=== PATIENT | male | born 1935 | race Caucasian/White ===

== ENCOUNTER 2021-12-18 09:31 | Outpatient (REF) | payer MEDICARE, SELFPAY ==
[2021-12-18 12:11] LABS: D Dimer High Sensitivity 208 NG/ML
== END 2021-12-18 09:32 | disposition home or self-care (01) ==
LOC: HO.LAB 09:31
PROVIDERS: PCP Physician Assistant; Visit Provider Nurse Practitioner Family
DX: M79.89 Other specified soft tissue disorders (principal); R29.818 Other symptoms and signs involving the nervous system; G20 Parkinson's disease
CPT/HCPCS: 36415; 85379; 99212

== ENCOUNTER → 2022-03-19 09:11 | Outpatient (BNVA) | payer MEDICARE, SELFPAY | PROVIDERS: Visit Provider Nurse Practitioner Family | DX: G20 Parkinson's disease (principal); R29.818 Other symptoms and signs involving the nervous system; Z79.899 Other long term (current) drug therapy | CPT/HCPCS: 99212 ==

== ENCOUNTER → 2022-06-18 10:23 | Outpatient (BNVA) | payer MEDICARE, SELFPAY | PROVIDERS: Visit Provider Nurse Practitioner Family | DX: G20 Parkinson's disease (principal); R29.818 Other symptoms and signs involving the nervous system; Z79.899 Other long term (current) drug therapy; Z91.81 History of falling | CPT/HCPCS: 99212 ==

== ENCOUNTER → 2022-10-22 09:10 | Outpatient (BNVA) | payer MEDICARE, SELFPAY | PROVIDERS: PCP Internal Medicine; Visit Provider Nurse Practitioner Family | DX: G20 Parkinson's disease (principal); R29.818 Other symptoms and signs involving the nervous system; Z91.81 History of falling; Z79.899 Other long term (current) drug therapy | CPT/HCPCS: 99212 ==

== ENCOUNTER → 2023-02-19 09:30 | Outpatient (BNVA) | payer MEDICARE, SELFPAY | PROVIDERS: PCP Internal Medicine; Visit Provider Nurse Practitioner Family | DX: G20 Parkinson's disease (principal); R29.818 Other symptoms and signs involving the nervous system | CPT/HCPCS: 99212 ==

== ENCOUNTER 2023-10-06 12:56 | Outpatient (AMB) | payer MEDICARE, SELFPAY ==
--- NOTE | 2023-10-06 13:01 | A.OFFVIS_ITS ---
Intake Vital Signs 10/06/23 13:10 Height 5 ft 10 in BP 122/74 Blood Pressure Location Rt brachial Position Sitting Pulse 61 Pulse Source Pulse Oximeter Pulse Oximetry (%) 95 Oxygen Delivery Method Room Air Intake Visit Reasons: 5mnts f/u appt -LVM Intake Note: Patient presents for 5 month follow. his daughter wanted us to report he's had increase sensitivity to sunlight,he feels his memory is not as good as it used to be Allergies Penicillins Allergy (Unknown, Verified 10/06/23 13:06) Unknown aripiprazole Allergy (Verified 10/06/23 13:06) Headache simvastatin Allergy (Verified 10/06/23 13:06) Abdominal Pain Medication List - Last Reconciled 10/06/23 by CRESCENCIO Dempsey acetaminophen ER (Tylenol 8 Hour) 650 mg PO Q12H albuterol sulfate 90 mcg/actuation inhalation albuterol-budesonide 90-80 mcg/actuation (Airsupra) 2 inhalations inhalation QID PRN amlodipine 5 mg PO DAILY aspirin (Adult Aspirin Regimen) 81 mg PO DAILY atorvastatin mg PO DAILY carbidopa-levodopa 25-100 mg 2 tabs PO QID 90 days docusate sodium (Colace) 100 mg PO DAILY entacapone 200 mg PO QID 28 days escitalopram oxalate 20 mg PO DAILY flaxseed oil 1,000 mg PO DAILY fluticasone propionate 50 mcg/actuation intranasal aybxjtkywer-cpomcovme-lhaxzlli 100-62.5-25 mcg (Trelegy Ellipta) 1 inh inhalation DAILY [Left ankle foot orthosis/AFO As directed] magnesium oxide 500 mg PO DAILY mirtazapine 15 mg PO BEDTIME multivitamin 1 tab PO DAILY omeprazole mg PO HPI HPI Comments History of Present Illness Details 87-yr-old male presents for f/u visit, a ccompanied by his nurse. Pt reports the following interval medical history changes: He had temporary pacemaker placement d/t being found in asystole, then had HF exacerbation. Then pacemaker was dislodged, however has since been replaced w/ permanent pacemaker. F/B Dr Jason at [facility]. Pt's current PD medication regimen: Sinemet 2 tabs qid. The Entacapone 200mg po QID was stopped during one of the recent hospitalizations, which pt did think was helping. ADL's: Needs assist Swallowing: No Voice: His voice can soft, hoarse- at times. Cough: No issues Drooling: None Orthostatic lightheadedness: None at this time Constipation: None Freezing: Foot sometimes becomes stuck Stiffness: None Tremor: Varies- sometimes really bad and sometimes not Falls: Has had a few falls- can be d/t tripping over his foot. More recently, he fell getting out of the car- states his dtr was too helpful helping him. Hallucinations: None Memory: He thinks memory is good, but has some STM lapses Sleep: Sleeping ok Exercise:?Not moving as much. He does have PT. 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 Patient Tobacco Use Status: Never used Tobacco service: Yes ([employer] ) Current occupational status: retired Review of Systems Const All systems reviewed & are unremarkable except as noted in HPI and below Physical Exam Vital Signs: Last Vital Signs Pulse 61 10/06/23 13:10 BP 122/74 10/06/23 13:10 Pulse Ox 95 10/06/23 13:10 Oxygen Delivery Method Room Air 10/06/23 13:10 Const General: cooperative and no acute distress Resp Effort & Inspection: normal respiratory effort and able to speak in complete sentences Neuro Other: General: Alert, responsive, STM lapses Expression: decreased Voice: mild hypophonia Tremor: RUE rest tremor, BUE postural tremor Tone: BUE R > L FFM: BUE bradykinesia L > R Foot taps: BLE bradykinesia Gait: Slight stoop, short steps w/ mild left high step w/ LLE AFO, steady w/ wa lker Psych: Pleasant affect Assessment & Plan Assessment & Plan (1) Parkinson's disease without dyskinesia: Code(s): G20.A1 - Parkinson's disease without dyskinesia, without mention of fluctuations (2) Difficulty balancing: Code(s): R29.818 - Other symptoms and signs involving the nervous system (3) Falls: Code(s): W19.XXXA - Unspecified fall, initial encounter Plan For Parkinson's, tremor, and gait difficulty- Continue Sinemet 25-100mg 2 tabs qid. Resume Entacapone 200mg po QID. LLE AFO w/ well-fitted slippers w/ sturdy soles. Continue PT/OT exercises. Use walker. Future considerations for tremor: Amantadine, Rytary, Rasagiline. f/u in 4 months or sooner prn Medications: Refilled entacapone administer at the same time as l-dopa/carbidopa dose 200 mg PO QID 28 days 112 tabs 6RF Coding Level of Care Code Est Pt Level 4 (18033) Diagnoses Parkinson's disease without dyskinesia G20.A1 Difficulty balancing R29.818 Falls W19.XXXA
[2023-10-06 13:10] VITALS: BP 122/74; PULSE 61; O2SAT 95
== END 2023-10-06 13:50 | disposition home or self-care (01) ==
PROVIDERS: PCP Internal Medicine; Visit Provider Nurse Practitioner Family
DX: G20.A2 Parkinson's disease without dyskinesia, with fluctuations (principal); R29.818 Other symptoms and signs involving the nervous system; R29.6 Repeated falls
CPT/HCPCS: 99214

== ENCOUNTER → 2023-10-06 12:56 | Outpatient (BNVA) | payer MEDICARE, SELFPAY | PROVIDERS: Visit Provider Nurse Practitioner Family | DX: G20.A1 Parkinson's disease without dyskinesia, without mention of fluctuations (principal); R29.818 Other symptoms and signs involving the nervous system; Z91.81 History of falling | CPT/HCPCS: 99212 ==

== ENCOUNTER 2024-02-05 12:41 | Outpatient (AMB) | payer MEDICARE, SELFPAY ==
--- NOTE | 2024-02-05 12:56 | MHC.OFFVIS ---
Vital Signs 02/05/24 13:00 02/05/24 13:09 Height 5 ft 10 in Weight 175 lb 2 oz 175 lb 2 oz BMI 25.1 BP 124/72 Blood Pressure Location Lt brachial Position Sitting Pulse 61 Pulse Source Pulse Oximeter Pulse Oximetry (%) 93 Oxygen Delivery Method Room Air Intake Visit Reasons: 4M follow up-CONF Intake Note: Patient presents for 4 months f/u. More hand tremors and more left leg weakness. Allergies Penicillins Allergy (Unknown, Verified 02/05/24 13:03) Unknown aripiprazole Allergy (Verified 02/05/24 13:03) Headache simvastatin Allergy (Verified 02/05/24 13:03) Abdominal Pain HPI Comments Details: 88-yr-old male presents for f/u visit, pt accompanied by his nurse. Pt denies any significant interval medical history changes. Pt's primary concerns are: Increased hand tremors. The tremor makes it difficult to hold a cup or eat. Does not usually drink hot beverages. Pt's current PD medication regimen: Sinemet 25-100mg 2 tabs qid, Entacapone 200mg po QID. Takes am dose before or after breakfast, but afternoon and evening doses 15-30 minutes before meals. Nurse confirmed doses are at 8am, 1pm, 4pm, 8pm. ADL's: Needs assist Swallowing: No Voice: His voice can soft, hoarse- at times. Cough: No issues Drooling: None Orthostatic lightheadedness: None at this time Constipation: None Urinary symptoms: No issues Freezing: Foot sometimes becomes stuck Stiffness: None Tremor: as above Falls: Denies Hallucinations: None Mood: Good Memory: He thinks memory is good, but has some STM lapses Sleep: Sleeping ok. He may kick in his sleep. Is prone to bad dreams- not affecting his sleep overall. Exercise:?Is still working w/ PT- doing Parkinson's exercises. He states he does the exercises on his own. 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 Patient Tobacco Use Status: Never used Tobacco service: Yes ([employer] ) Current occupational status: retired Review of Systems Const All systems reviewed & are unremarkable except as noted in HPI and below Physical Exam Vital Signs: Last Vital Signs Pulse 61 02/05/24 13:09 BP 124/72 02/05/24 13:09 Pulse Ox 93 02/05/24 13:09 Oxygen Delivery Method Room Air 02/05/24 13:09 BMI result Body Mass Index 25.1 Const General: cooperative and no acute distress Resp Effort & Inspection: normal respiratory effort and able to speak in complete sentences Neuro Other: General: Alert, responsive, STM lapses Expression: decreased Voice: mild hypophonia Tremor: RUE rest tremor, BUE postural tremor Tone: BUE R > L FFM: BUE bradykinesia Foot taps: BLE bradykinesia Gait: Slight stoop, short steps w/ mild left high step, steady w/ walker. Pt not wearing LLE AFO- feels it is bothersome. Psych: Pleasant affect Assessment & Plan Assessment & Plan (1) Parkinson's disease without dyskinesia: Code(s): G20.A1 - Parkinson's disease without dyskinesia, without mention of fluctuations Category: Medical (2) Tremor: Code(s): R25.1 - Tremor, unspecified Category: Medical (3) Difficulty balancing: Code(s): R29.818 - Other symptoms and signs involving the nervous system Category: Medical Plan For Parkinson's, tremor, and gait difficulty- Adjust Sinemet 25-100mg 2 tabs qid at 8am, 1pm, 4pm, 8pm to: To CD-LD IR 25-100mg- 2 tabs qid 8am, 11:30am, 3:30pm, 7:30pm, w/ encaptopone 200mg QID. Add CD-LD ER 25-100mg at 10:30pm. Above adjustmenst are in hopes of reducing tremor. Encouraged pt to wear LLE AFO w/ well-fitted slippers w/ sturdy soles- if botehrosme, can wear liner, or we can request fitting/adjsutment. Continue PT/OT exercises. Use walker. Future considerations for tremor: Amantadine, Rytary, Rasagiline. f/u in 6 months or sooner prn Medications: New carbidopa-levodopa 25-100 mg ER at 10:30pm 1 tab PO BEDTIME 30 days 30 tabs 6RF carbidopa-levodopa 25-100 mg ER at 10:30pm 1 tab PO BEDTIME 30 days 30 tabs 6RF carbidopa-levodopa 25-100 mg ER at 10:30pm 1 tab PO BEDTIME 30 tabs 6RF 30 days Changed From carbidopa-levodopa 25-100 mg 2 tabs PO QID 90 days 720 tabs 1RF To carbidopa-levodopa 25-100 mg 2 tabs qid at 8am, 11:30am, 3:30pm, 7:30pm 2 tabs PO QID 90 days 720 tabs 1RF From entacapone administer at the same time as l-dopa/carbidopa dose 200 mg PO QID 28 days 112 tabs 6RF To entacapone administer at the same time as CD-LD IR 25-100mg tabs at 8am, 11:30am, 3:30pm, 8pm. 200 mg PO QID 28 days 112 tabs 6RF Refilled carbidopa-levodopa 25-100 mg 2 tabs qid at 8am, 11:30am, 3:30pm, 7:30pm 2 tabs PO QID 90 days 720 tabs 1RF carbidopa-levodopa 25-100 mg 2 tabs qid at 8am, 11:30am, 3:30pm, 7:30pm 2 tabs PO QID 720 tabs 1RF 90 days entacapone administer at the same time as CD-LD IR 25-100mg tabs at 8am, 11:30am, 3:30pm, 8pm. 200 mg PO QID 28 days 112 tabs 6RF entacapone administer at the same time as CD-LD IR 25-100mg tabs at 8am, 11:30am, 3:30pm, 8pm. 200 mg PO QID 112 tabs 6RF 28 days Coding Level of Care Code Est Pt Level 4 (45704) Diagnoses Parkinson's disease without dyskinesia G20.A1 Tremor R25.1 Difficulty balancing R29.818
[2024-02-05 13:09] VITALS: BP 124/72; PULSE 61; O2SAT 93; BMI 25.1
== END 2024-02-05 14:01 | disposition home or self-care (01) ==
PROVIDERS: PCP Internal Medicine; Visit Provider Nurse Practitioner Family
DX: G20.A1 Parkinson's disease without dyskinesia, without mention of fluctuations (principal); R29.818 Other symptoms and signs involving the nervous system
CPT/HCPCS: 99214

== ENCOUNTER → 2024-02-05 12:41 | Outpatient (BNVA) | payer MEDICARE, SELFPAY | PROVIDERS: PCP Internal Medicine; Visit Provider Nurse Practitioner Family | DX: G20.A1 Parkinson's disease without dyskinesia, without mention of fluctuations (principal); R29.818 Other symptoms and signs involving the nervous system | CPT/HCPCS: 99212 ==

== ENCOUNTER 2024-08-23 12:57 | Outpatient (AMB) | payer MEDICARE, SELFPAY ==
--- NOTE | 2024-08-23 13:04 | A.OFFVIS_ITS ---
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 Accompanied by: Daughter Allergies Penicillins Allergy (Unknown, Verified 08/23/24 13:10) Unknown aripiprazole Allergy (Verified 08/23/24 13:10) Headache simvastatin Allergy (Verified 08/23/24 13:10) Abdominal Pain Medication List - Last Reconciled 08/23/24 by CRESCENCIO Dempsey acetaminophen ER (Tylenol 8 Hour) 500 mg PO Q12H albuterol sulfate 90 mcg/actuation inhalation albuterol-budesonide 90-80 mcg/actuation (Airsupra) 2 inhalations inhalation QID PRN aspirin (Adult Aspirin Regimen) 81 mg PO DAILY atorvastatin mg PO DAILY carbidopa-levodopa 25-100 mg 2 tabs PO QID docusate sodium (Colace) 100 mg PO DAILY entacapone 200 mg PO QID 28 days escitalopram oxalate 20 mg PO DAILY fluticasone propionate 50 mcg/actuation intranasal lborztdwfbf-uuxshsfez-vuguwwof 100-62.5-25 mcg (Trelegy Ellipta) 1 inh inhalation DAILY [Left ankle foot orthosis/AFO As directed] levothyroxine 37.5 mcg PO DAILY magnesium oxide 500 mg PO DAILY mirtazapine 15 mg PO BEDTIME omeprazole mg PO HPI Comments Details: 88-yr-old male presents for f/u visit, pt accompanied by his dtr. 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 Pt's primary concerns are: Has been having more pronounced photophobia especialy when driving over the last year. Denies watery eyes. Last eye exam 12-18 months ago. He tried adding CD-LD Er at night but did not tolertae it, caused GI s/e's and nightmares. The office was updated, and Dr Plascencia ordered Rytary however the co-pay was cost-prohibitive so pt resumed previous CD-LD/Comtan regimen. Dtr feels pt is a bit slower nad stiffer. Pt's current PD medication regimen: Sinemet 25-100mg 2 tabs qid, Entacapone 200mg po QID. Now taking after meals as taking it beofre emals causes nause/GI upset. Nurse confirmed doses are at 8am, 1pm, 4pm, 8pm. ADL's: Needs assist Swallowing: No Voice: His voice can soft, hoarse- at times. Cough: No issues Drooling: None Orthostatic lightheadedness: None at this time Constipation: Has had constipation- colace is helping Urinary symptoms: Voids a couple of times at night. Denies incontinence. Freezing: Foot sometimes becomes stuck Stiffness: None Tremor: Some days better than others. Worse in RUE. Falls: Denies Hallucinations: None Mood: Good Memory: He thinks memory is very good, but has some STM lapses Sleep: Sleeping ok. He may kick in his sleep. Is prone to bad dreams- not affecting his sleep overall. Exercise: He states he does the PT exercises on his own. 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 Eyes: No photophobia w/ direct light confrontation. EOM intact w/o nystagmus. Expression: decreased Voice: mild hypophonia Tremor: RUE rest tremor, BUE postural tremor Tone: BUE R > L FFM: BUE bradykinesia Foot taps: BLE bradykinesia, more so on right. Gait: Slight stoop, short steps w/ mild left high step, steady w/ walker. Pt is wearing LLE AFO.. Psych: Pleasant affect Assessment & Plan Assessment & Plan (1) Parkinson's disease without dyskinesia: Code(s): G20.A1 - Parkinson's disease without dyskinesia, without mention of fluctuations Category: Medical (2) Tremor: Code(s): R25.1 - Tremor, unspecified Category: Medical (3) Difficulty balancing: Code(s): R29.818 - Other symptoms and signs involving the nervous system Category: Medical (4) Photophobia: Code(s): H53.149 - Visual discomfort, unspecified Category: Medical Plan For Parkinson's, tremor, and gait difficulty- Trial Rytary 48.75-195mg cap- 2 caps po QID. Once Rytary available, stop CD-LD 25-100mg 2 tabs qid at 8am, 1pm, 4pm, 8pm w/ encaptopone 200mg QID. Wear LLE AFO w/ well-fitted slippers w/ sturdy soles- if bothersome, can wear liner, or we can request fitting/adjustment. Continue PT/OT exercises. Use walker. For photophobia- Advised to try OTC tear gtts, schedule eye exam. For constipation- continue colace, fluids. Future considerations for tremor: Amantadine, Rasagiline. f/u in 6 months or sooner prn Medications: New carbidopa-levodopa 48.75-195 mg ER (Rytary) divide evenly over waking hours 2 caps PO QID 30 days 240 caps 6RF Coding Level of Care Code Est Pt Level 4 (23389) Complex EM visit Add On G2211 Diagnoses Parkinson's disease without dyskinesia G20.A1 Tremor R25.1 Difficulty balancing R29.818 Photophobia H53.149
[2024-08-23 13:10] VITALS: BP 126/78; PULSE 64; O2SAT 86; BMI 24.0
== END 2024-08-23 13:55 | disposition home or self-care (01) ==
PROVIDERS: PCP Internal Medicine; Visit Provider Nurse Practitioner Family
DX: G20.A1 Parkinson's disease without dyskinesia, without mention of fluctuations (principal); R29.818 Other symptoms and signs involving the nervous system; H53.149 Visual discomfort, unspecified
CPT/HCPCS: 99214; G2211

== ENCOUNTER → 2024-08-23 12:57 | Outpatient (BNVA) | payer MEDICARE, SELFPAY | PROVIDERS: PCP Internal Medicine; Visit Provider Nurse Practitioner Family | DX: G20.A1 Parkinson's disease without dyskinesia, without mention of fluctuations (principal); H53.143 Visual discomfort, bilateral; R29.818 Other symptoms and signs involving the nervous system; Z91.82 Personal history of military deployment | CPT/HCPCS: 99212 ==